=== PATIENT | male | born 1980 | race Caucasian/White ===

== ENCOUNTER 2022-11-17 11:14 | Day surgery (SDC) | payer OTHER ==
[2022-11-15 13:35] VITALS: BMI 29.0
[2022-11-17] MEDS ORDERED: LACTATED RINGERS 1,000 ML IV SCH (11:38)
[2022-11-17 11:41] VITALS: RESP 16; TEMP 97
[2022-11-17] MEDS ORDERED: PROPOFOL 10 MG/ML 20 ML VIAL IV ONE (12:12)
--- NOTE | 2022-11-17 12:33 | P.PCN ---
Date of Procedure: 11/17/22 Procedure(s) Performed: BRIEF HISTORY: Patient is a 42-year-old pleasant white male scheduled for an elective colonoscopy as a part of evaluation of intermittent rectal bleeding for the last several years duration. PROCEDURE PERFORMED: Colonoscopy. PREOPERATIVE DIAGNOSIS: Intermittent rectal bleeding. IV sedation per Anesthesia. PROCEDURE: After informed consent was obtained, the patient, was brought into the endoscopy unit. IV sedation was administered by Anesthesia under continuous monitoring. Digital rectal examination was normal. Initially the Olympus CF-160 flexible video colonoscope was then inserted in the rectum, gradually advanced into the cecum without any difficulty. Careful examination was performed as the scope was gradually being withdrawn. Ileocecal valve and the appendiceal orifice were visualized and appeared normal. Prep was excellent. Mucosa of the cecum, ascending colon, transverse colon, descending colon, sigmoid colon, and rectum appeared normal. Retroflexion was performed in the rectum and small internal hemorrhoids were seen. The patient tolerated the procedure well. IMPRESSION: Normal-appearing colon from rectum to cecum with no evidence of colorectal neoplasia . Small internal hemorrhoids RECOMMENDATIONS: Findings of this examination were discussed with the patient as well as his family. He was advised to be a high-fiber diet and take fiber supplements a regular basis. Hemorrhoids straining and constipation. Recommend repeat screening colonoscopy in 10 years..
[2022-11-17 12:50] VITALS: BP 103/64; PULSE 59
== END 2022-11-17 13:20 | disposition home or self-care (01) ==
LOC: ORWHC2ENDO 11:14
PROVIDERS: ATTEND Internal Medicine Gastroenterology
DX: K62.5 Hemorrhage of anus and rectum (principal); K64.8 Other hemorrhoids; F12.90 Cannabis use, unspecified, uncomplicated
CPT/HCPCS: 45378; J2704